=== PATIENT | female | born 1960 | race Caucasian/White ===

== ENCOUNTER 2017-06-18 11:19 | Emergency (ER) | payer OTHER ==
[2017-06-18 11:36] VITALS: BP 128/70
--- NOTE | 2017-06-18 12:27 | UC ---
Respiratory Complaint HPI - HPI Summary HPI Summary: 56 yo female ill x 2 weeks Initially started as URI (nasal congestion/runny nose) now with productive cough and left sided cp x 2 days hurts to lay on left side no sob no n/v/d - History of Current Complaint Chief Complaint: UCRespiratory Stated Complaint: CHEST CONGESTION Time Seen by Provider: 06/18/17 11:54 Hx Obtained From: Patient Onset/Duration: Gradual Onset Timing: Constant Severity Initially: Mild Severity Currently: Moderate Pain Intensity: 4 - worse with cough or deep breath Character: Cough: Productive Aggravating Factors: Deep Breaths Alleviating Factors: Nothing Associated Signs And Symptoms: Positive: Nasal Congestion, Sinus Discomfort - Allergies/Home Medications Allergies/Adverse Reactions: Allergies Allergy/AdvReac Type Severity Reaction Status Date / Time Sulfa Antibiotics Allergy Hives Verified 06/18/17 11:36 Sulfamethoxazole Allergy Hives Verified 06/18/17 11:36 w/Trimethoprim [From Bactrim] Home Medications: Home Medications Cetirizine* [ZyrTEC 10 MG TAB*] 10 mg PO DAILY 06/18/17 [History Confirmed 06/18] PMH/Surg Hx/FS Hx/Imm Hx Previously Healthy: Yes - Surgical History Surgical History: Yes Surgery Procedure, Year, and Place: LEFT Carpal Tunnel Repair, 2010, [facility]. GALLBLADDER, 2005, [facility]. HYSTERECTOMY, AGE 36, [facility]. Left ganglion cyst removal, 10/2013, [facility] - Family History Known Family History: Positive: Cardiac Disease, Hypertension, Diabetes - Social History Alcohol Use: Rare Alcohol Amount: HOLIDAYS Substance Use Type: None Smoking Status (MU): Never Smoked Tobacco - Immunization History Vaccination Up to Date: No Review of Systems Constitutional: Negative Skin: Negative Eyes: Negative ENT: Nasal Discharge, Sinus Congestion Respiratory: Cough Cardiovascular: Chest Pain Gastrointestinal: Negative Genitourinary: Negative Motor: Negative Neurovascular: Negative Musculoskeletal: Negative Neurological: Negative Psychological: Negative Is Patient Immunocompromised?: No All Other Systems Reviewed And Are Negative: Yes Physical Exam Triage Information Reviewed: Yes Appearance: Well-Appearing, No Pain Distress, Well-Nourished Vital Signs: Initial Vital Signs Temp 98.2 F 06/18/17 11:33 Pulse 65 06/18/17 11:33 Resp 18 06/18/17 11:33 BP 128/70 06/18/17 11:33 Pulse Ox 99 06/18/17 11:33 Vital Signs Reviewed: Yes Eyes: Positive: Conjunctiva Clear ENT: Positive: Hearing grossly normal, Nasal congestion, Nasal drainage, Uvula midline. Negative: Trismus, Muffled voice, Hoarse voice Neck: Positive: Supple, Nontender, No Lymphadenopathy Respiratory: Positive: Chest non-tender - see image, Lungs clear, Normal breath sounds, No respiratory distress Cardiovascular: Positive: RRR, No Murmur Abdomen Description: Positive: Nontender Musculoskeletal: Positive: ROM Intact, No Edema Neurological: Positive: Alert Psychological Exam: Normal Skin Exam: Normal UC Diagnostic Evaluation - Laboratory O2 Sat by Pulse Oximetry: 99 - normal/not hypoxic - Radiology Xray Interpretation: No Acute Changes Radiology Interpretation Completed By: Radiologist - EKG Cardiac Rate: NL Cardiac Rhythm: Sinus: Normal Ectopy: None ST Segment: Normal Respiratory Course/Dx - Differential Dx/Diagnosis Provider Diagnoses: acute bronchitis. chest wall pain vs pleuresy Discharge - Discharge Plan Condition: Stable Disposition: HOME Prescriptions: Amoxicillin PO (*) [Amoxicillin 875 MG (*)] 875 mg PO BID #14 tab Prednisone [Deltasone] 40 mg PO DAILY #10 tab Patient Education Materials: Acute Bronchitis (ED), Chest Wall Pain (ED) Forms: *Work Release Referrals: LUIGI Salcedo [Primary Care Provider] - 6 Days (if not better) Additional Instructions: rest heat recheck for worsening symptoms
--- NOTE | 2017-06-18 12:38 | RAD ---
INDICATION: Cough for 2 weeks; now with LEFT side chest pain. COMPARISON: No relevant prior exams available on the [facility] PACS for comparison. TECHNIQUE: Dual energy PA and routine lateral views of the chest were obtained. REPORT: Clear lungs and pleural spaces. Negative for pneumothorax. The heart, pulmonary vasculature, and mediastinal contours are unremarkable. Gallbladder fossa level surgical clips. Unremarkable osseous structures and soft tissue contours. IMPRESSION: No evidence for pneumonia. Negative exam.
== END 2017-06-18 12:56 | disposition home or self-care (01) ==
LOC: UCCORT 11:19
DX: J20.9 Acute bronchitis, unspecified (principal); Z88.2 Allergy status to sulfonamides
CPT/HCPCS: 71020; 93005; 99212; G0463

== ENCOUNTER 2018-05-26 11:37 | Emergency (ER) | payer OTHER ==
[2018-05-26 12:10] VITALS: BP 156/68
--- NOTE | 2018-05-26 12:54 | ED ---
Lower Extremity - HPI Summary HPI Summary: 57 yr old female with the complaint of left ankle and left foot pain. The patient found out last month that her blood work cholesterol was on the "boarder " She started a walking exercise program three weeks ago, and two weeks ago began to have some pain in her left heel, ankle area that has gotten progressively worse with walking. Pain worse last night when sleeping. She feels her foot is a little swollen, but no swelling to the left leg. - History of Current Complaint Chief Complaint: UCLowerExtremity Stated Complaint: LEFT FOOT COMPLAINT Time Seen by Provider: 05/26/18 12:45 Pain Intensity: 9 - Allergies/Home Medications Allergies/Adverse Reactions: Allergies Allergy/AdvReac Type Severity Reaction Status Date / Time Sulfa (Sulfonamide Allergy Hives Verified 05/26/18 12:11 Antibiotics) sulfamethoxazole Allergy Hives Verified 05/26/18 12:11 [From Bactrim] trimethoprim [From Bactrim] Allergy Hives Verified 05/26/18 12:11 Home Medications: Home Medications Fexofenadine (NF) [Char 180 (NF)] 180 mg PO DAILY 05/26/18 [History Confirmed 05/26/18] Over 50 Multivit 1 tab PO DAILY 05/26/18 [History] PMH/Surg Hx/FS Hx/Imm Hx Cardiovascular History: Denies: Other Cardiovascular Problems/Disorders GI History: Denies: Other GI Disorders Musculoskeletal History: Denies: Other Musculoskeletal History Sensory History: Reports: Hx Contacts or Glasses - GLASSES Denies: Hx Hearing Aid Opthamlomology History: Reports: Hx Contacts or Glasses - GLASSES Neurological History: Denies: Other Neuro Impairments/Disorders - Surgical History Surgery Procedure, Year, and Place: LEFT Carpal Tunnel Repair, 2010, [facility]. GALLBLADDER, 2006, [facility]. HYSTERECTOMY, AGE 36, [facility]. Left ganglion cyst removal left hand, 10/2013, [facility] Hx Anesthesia Reactions: No Infectious Disease History: No Infectious Disease History: Denies: Hx Clostridium Difficile, Hx Hepatitis, Hx Human Immunodeficiency Virus (HIV), Hx of Known/Suspected MRSA, Hx Shingles, Hx Tuberculosis, Hx Known/ Suspected VRE, Hx Known/Suspected VRSA, History Other Infectious Disease, Traveled Outside the in Last 30 Days - Family History Known Family History: Positive: Cardiac Disease, Hypertension, Diabetes - Social History Alcohol Use: Rare Alcohol Amount: HOLIDAYS Substance Use Type: Reports: None Smoking Status (MU): Never Smoked Tobacco Review of Systems Negative: Palpitations, Chest Pain Negative: Shortness Of Breath, Cough Positive: Other - left foot ankle pain. All Other Systems Reviewed And Are Negative: Yes Physical Exam Triage Information Reviewed: Yes Vital Signs On Initial Exam: Initial Vitals Temp Pulse Resp BP Pulse Ox 97.6 F 76 18 156/68 98 05/26/18 12:01 05/26/18 12:01 05/26/18 12:01 05/26/18 12:01 05/26/18 12:01 Vital Signs Reviewed: Yes Appearance: Positive: Well-Appearing, No Pain Distress Skin: Positive: Warm, Skin Color Reflects Adequate Perfusion Head/Face: Positive: Normal Head/Face Inspection Eyes: Positive: EOMI ENT: Positive: Normal ENT inspection Neck: Positive: Nontender Respiratory/Lung Sounds: Positive: Clear to Auscultation, Breath Sounds Present Cardiovascular: Positive: RRR. Negative: Murmur Abdomen Description: Positive: Nontender Musculoskeletal: Positive: Strength/ROM Intact, Other - some tenderness over the left medial malleolus, and over the calcaneus. No STS noted. No achilles tendon pain. No pain to the calf or swelling. Good DP and PT pulses present. Neurological: Positive: Sensory/Motor Intact, Alert, Oriented to Person Place, Time, CN Intact II-III Psychiatric: Positive: Normal - Chuck Coma Scale Best Eye Response: 4 - Spontaneous Best Motor Response: 6 - Obeys Commands Best Verbal Response: 5 - Oriented Coma Scale Total: 15 Diagnostics - Vital Signs Vital Signs Temp Pulse Resp BP Pulse Ox 05/26/18 12:01 97.6 F 76 18 156/68 98 - Laboratory Lab Statement: Any lab studies that have been ordered have been reviewed, and results considered in the medical decision making process. - Radiology foot ankle left Radiology Interpretation Completed By: Radiologist - osteoarthritis, talo crual joint Lower Extremity Course/Dx - Course Course Of Treatment: 57 yr old with arthritis in talo crural joint. Plan dc home. FU with Ortho. - Diagnoses Provider Diagnoses: DJD (degenerative joint disease), ankle and foot, Hypertension Discharge - Sign-Out/Discharge Documenting (check all that apply): Patient Departure All imaging exams completed and their final reports reviewed: No Studies - Discharge Plan Condition: Good Disposition: HOME Patient Education Materials: Osteoarthritis (ED) Referrals: No Primary Care Phys,NOPCP [Primary Care Provider] - Nir Lemon MD [Medical Doctor] - 1 Day [facility] PHYSICIAN REFERRAL [Outside] - 1 Day - Billing Disposition and Condition Condition: GOOD Disposition: Home
--- NOTE | 2018-05-26 13:25 | RAD ---
INDICATION: Left ankle pain. TECHNIQUE: 3 views of the left ankle were obtained. FINDINGS: The bones appear osteopenic. There is diffuse soft tissue swelling. No fracture is seen. There is moderate to severe osteoarthritic change in the talocrural joint. IMPRESSION: MODERATE TO SEVERE OSTEOARTHRITIC CHANGE.
--- NOTE | 2018-05-26 13:27 | RAD ---
INDICATION: Left foot pain. TECHNIQUE: 3 views of the left foot were obtained. FINDINGS: The bones are in normal alignment. No fracture is seen. There is moderate to severe osteoarthritic change in the talocrural joint. IMPRESSION: MODERATE TO SEVERE OSTEOARTHRITIC CHANGE IN THE TALOCRURAL JOINT.
--- NOTE | 2018-05-26 13:35 | ED ---
Progress - Progress Note Progress Note: final read reviewed, JADA. Course/Dx - Course Course Of Treatment: 57 yr old with arthritis in talo crural joint. Plan dc home. FU with Ortho. - Diagnoses Provider Diagnoses: DJD (degenerative joint disease), ankle and foot, Hypertension Discharge - Sign-Out/Discharge Documenting (check all that apply): Patient Departure All imaging exams completed and their final reports reviewed: Yes - Discharge Plan Condition: Good Disposition: HOME Patient Education Materials: Osteoarthritis (ED) Referrals: [facility] [Outside] - 1 Day Nir Lemon MD [Medical Doctor] - 1 Day No Primary Care Phys,NOPCP [Primary Care Provider] - - Billing Disposition and Condition Condition: GOOD Disposition: Home
== END 2018-05-26 13:48 | disposition home or self-care (01) ==
LOC: UCCORT 11:37
DX: M19.072 Primary osteoarthritis, left ankle and foot (principal); I10 Essential (primary) hypertension; Z88.1 Allergy status to other antibiotic agents; Z88.2 Allergy status to sulfonamides
CPT/HCPCS: 99211; G0463

== ENCOUNTER → 2018-08-25 05:50 | Day surgery (SDC) | payer BC, OTHER ==
[~2018-08-25 05:50] MED LIST: Acetaminophen IV 1GM/100ML * 1,000 MG/100 ML VIAL IVPB ONE; Acetaminophen IV 1GM/100ML * 100 ML ONE; Buffered Lidocaine 1% SYRIN* 1 ML/SYRINGE INTRADERM ONE; Bupivacaine 0.5%* 50 ML VIAL ONE; Dexamethasone IV* 4 MG/ML 1 ML (4 MG) ONE; Dexmedetomidine* 200 MCG/2 ML 2 ML VIAL ONE; DiMENhydriNATE IV* 50 MG/ML VIAL IV PUSH PRN; DiMENhydriNATE IV* 50 MG/ML VIAL ONE; Famotidine IV* 10 MG/ML 2 ML (20 mg) IV ONE; Famotidine IV* 10 MG/ML 2 ML (20 mg) ONE; Gabapentin CAP(*) 100 MG ONE; Gabapentin CAP(*) 100 MG PO ONE; Gabapentin CAP(*) 300 MG ONE; Gabapentin CAP(*) 300 MG PO ONE; HYDROmorphone INJ1* 1 MG/ML SYRINGE ONE; KETAMINE HCL* 50 MG/ML 10 ML VIAL ONE; Ketorolac INJ* 30 MG/ML 1 ML VIAL ONE; Lactated Ringers 1000 ML Bag* 1,000 ML IV SCH; Lidocaine 2% PF* 10 ML AMP ONE; Midazolam* 1 MG/ML 5 ML VIAL (5 MG) ONE; Naloxone* 0.4 MG/ML 1 ML VIAL IV PRN; Ondansetron INJ* 2 MG/ML VIAL ONE; Propofol* 10 MG/ML 20 ML BTL ONE; ceFAZolin 2 GM PREMIX in ORs 2 GM/50 ML BAG IVPB ONE; fentaNYL* 50 MCG/ML 2 ML VIAL (100 MCG VIAL) ONE; oxyCODONE TAB* 5 MG TAB PO PRN
[2018-08-25] MEDS: HYDROmorphone INJ1* 1 MG/ML SYRINGE IV PRN ×2 (10:52→11:08)
[2018-08-25 13:46] VITALS: BP 114/77
--- NOTE | 2018-08-25 23:32 | OP ---
DATE OF OPERATION: 08/25/18 - [facility] DATE OF : 56 SURGEON: Jerzy Falk MD PRIME MINISTER: ISABEL Deal PRE-OP DIAGNOSIS: Left ankle arthritis with Achilles contracture. POST-OP DIAGNOSIS: Left ankle arthritis with Achilles contracture. OPERATIVE PROCEDURE: Left Infinity total ankle with Lona release. DESCRIPTION OF PROCEDURE: The patient was taken to the operating room where a 3 cm longitudinal incision was made medial to the mid portion of the calf through the soft tissue. I exposed the tendon of the Achilles overlying the soleus. This was transected medial to lateral, taking care to protect the deep soft tissues. I irrigated the subcu tissue closing with 2-0 Vicryl and obie for the skin. We then made a longitudinal incision over the anterior ankle with the retinaculum size just lateral to the anterior tibial. The distal tibial sizing jig was placed over the anterior aspect of the distal tibia and using the C-arm we sized this to approximately 3 size tibia. I also checked the intramedullary alignment. With some guide pins in the size 3 distal tibia sizing block, we were able to also check the flexion and extension position on the lateral view. We then fixed the distal tibial cutting jig and also fixed the talus to this jig with their neck pins. We then cut the distal tibia as well as the talar dome with the reciprocating saw. We then finished the cuts with a small osteotome. We sized the talus for #3 also. The talar cutting jig was then fixed to the talus using guide pins. We cut the posterior chamfer as well as reaming out the anterior portion of the neck with the appropriate jigs. We were then able to do a trial reduction with a #3 tibia, #3 talus and a 6 and then 8 mm poly. Good fixation appeared to be possible judging on AP and lateral C-arm views as well as sizing. We then used the peg hole for the tibial component and also the anterior peg hole drill bit for the talar component. We then selected a #3 tibial component, #3 talar component, both of these driven in with appropriate jigs and then an 8 mm poly. Trial reduction was performed, felt to be excellent, so the permanent poly was placed. We irrigated thoroughly closing the retinaculum with interrupted 0 Vicryl, subcu with 2-0 Vicryl and obie for the skin. A compression dressing plaster splint was applied. [id number]/[facility] #: [id number] [facility] CENTERNaresh
== END | disposition home or self-care (01) ==
LOC: OR 05:50
PROVIDERS: ATTEND Orthopaedic Surgery
DX: M19.172 Post-traumatic osteoarthritis, left ankle and foot (principal); K21.9 Gastro-esophageal reflux disease without esophagitis; J30.89 Other allergic rhinitis
CPT/HCPCS: 76000; A9270-GY; C1776; J0690; J1100; J1170; J1240; J1885; J2001; J2250; J2405; J2704; J3010

== ENCOUNTER 2019-07-02 10:13 | Emergency (ER) | payer BC ==
--- OUTSIDE RECORDS SUMMARY | 2019-07-02 10:41 | XMS REPORT | Continuity of Care Document ---
:1960 External Reference #:[id number] Author Name Jerzy Falk M.D. 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 [phone] Nurse Problems Description No Information Available Social History Type Date Description Comments Sex Unknown ETOH Use Rarely consumes alcohol Tobacco Use Start: Unknown Patient has never smoked Recreational Drug Use Denies Drug Use Smoking Status Reviewed: 05/13/19 Patient has never smoked Exercise Type/Frequency Exercises regularly walking Allergies, Adverse Reactions, Alerts Active Allergies Reaction Severity Comments Date Sulfa Antibiotics 07/25/2015 Bactrim 07/25/2015 Medications Active Medications SIG Qnty Indications Ordering Provider Date Vitamin D High Potency 2 by mouth every Unknown day 1000Unit Capsules Char Allergy 1 by mouth every Unknown 60mg day Tablets Centrum Silver 1 by mouth every Unknown Tablets day Magnesium 1 by mouth every Unknown 200mg Tablets day Potassium 1 by mouth daily Unknown Tablets Acetaminophen Extra 2 tabs by mouth Unknown Strength every 8 hours as 500mg Tablets needed for pain or fever Advil 2 tabs by mouth Unknown 200mg Tablets as needed Medications Administered in Office Medication SIG Qnty Indications Ordering Provider Date Celestone 3 mg and 3mg Nir Lemon MD 05/27/2018 Injection Immunizations Description No Information Available Vital Signs Date Vital Result Comment 05/13/2019 11:02am Height 62 inches 5'2" Weight 200.00 lb Heart Rate 78 /min BP Systolic Sitting 121 mmHg BP Diastolic Sitting 67 mmHg Respiratory Rate 16 /min Pain Level 5 O2 % BldC Oximetry 98 % BMI (Body Mass Index) 36.6 kg/m2 02/04/2019 11:56am Height 62 inches 5'2" Weight 201.00 lb BP Systolic Sitting 120 mmHg BP Diastolic Sitting 72 mmHg Respiratory Rate 12 /min Pain Level 3 BMI (Body Mass Index) 36.8 kg/m2 Results Description No Information Available Procedures Description No Information Available Medical Devices Description No Information Available Encounters Type Date Location Provider Dx Diagnosis Office Visit 05/13/2019 [facility] Jerzy Falk Z96.662 Presence of left 11:00a at [facility] artificial ankle joint Z47.1 Aftercare following joint replacement surgery G57.92 Unspecified mononeuropathy of left lower limb Office Visit 02/04/2019 [facility] Jerzy M19.172 Post-traumatic 11:45a [facility]oped[facility] nazario Falk M.D. osteoarthritis, left [place] ankle and foot Z96.662 Presence of left artificial ankle joint Z47.1 Aftercare following joint replacement surgery Assessments Date Code Description Provider 05/13/2019 Z96.662 Presence of left artificial ankle joint Jerzy Falk M.D. 05/13/2019 Z47.1 Aftercare following joint replacement surgery Jerzy Falk M.D. 05/13/2019 G57.92 Unspecified mononeuropathy of left lower limb Jerzy Falk M.D. 02/04/2019 M19.172 Post-traumatic osteoarthritis, left ankle and Jerzy Falk M.D. foot 02/04/2019 Z96.662 Presence of left artificial ankle joint Jerzy Falk M.D. 02/04/2019 Z47.1 Aftercare following joint replacement surgery Jerzy Falk M.D. 11/19/2018 M19.172 Post-traumatic osteoarthritis, left ankle and Jerzy Falk M.D. foot Plan of Treatment Future Appointment(s):06/17/2019 11:00 am [facility] Jerzy Falk M.D.Z96.662 Presence of left artificial ankle jointNew Therapy:Physical TherapyRehab ReferralFollow up: Follow up: 4 [id number] Aftercare following joint replacement [id number] Unspecified mononeuropathy of left lower limbFollow up:As needed Functional Status Description No Information Available Mental Status Description No Information Available Referrals Description No Information Available
--- OUTSIDE RECORDS SUMMARY | 2019-07-02 10:41 | XMS REPORT | Continuity of Care Document ---
:1960 External Reference #:[id number] Author Name Jerzy Falk M.D. 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 [phone] Problems Description No Information Available Social History Type Date Description Comments Sex Unknown ETOH Use Rarely consumes alcohol Tobacco Use Start: Unknown Patient has never smoked Recreational Drug Use Denies Drug Use Smoking Status Reviewed: 06/17/19 Patient has never smoked Exercise Type/Frequency Exercises [...] by mouth Unknown 200mg Tablets as needed History Medications Gabapentin 1 tab by mouth 60caps Momo Knight MD 05/13/2019 - 100mg every 12 hours 06/16/2019 Capsules Medications Administered in Office Medication SIG Qnty Indications Ordering Provider Date Celestone 3 mg and 3mg Nir Lemon MD 05/27/2018 Injection Immunizations Description No Information Available Vital Signs Date Vital Result Comment 06/17/2019 10:42am Height 62 inches 5'2" Weight 196.00 lb Heart Rate 87 /min BP Systolic Sitting 126 mmHg BP Diastolic Sitting 80 mmHg Respiratory Rate 18 /min Pain Level 2 O2 % BldC Oximetry 98 % BMI (Body Mass Index) 35.8 kg/m2 05/13/2019 11:02am Height 62 inches 5'2" Weight 200.00 lb Heart Rate 78 /min BP Systolic Sitting 121 mmHg BP Diastolic Sitting 67 mmHg Respiratory Rate 16 /min Pain Level 5 O2 % BldC Oximetry 98 % BMI (Body Mass Index) 36.6 kg/m2 Results Description No Information Available Procedures Date Code Description Status 05/13/2019 07943 Rad Exam; Ankle Comp Completed Medical Devices Description No Information Available Encounters Type Date Location Provider Dx Diagnosis Office Visit 05/13/2019 [facility] Jerzy Falk Z96.662 Presence of left 11:00a at [facility] artificial ankle joint Z47.1 Aftercare following joint replacement surgery G57.92 Unspecified mononeuropathy of left lower limb M19.172 Post-traumatic osteoarthritis, left ankle and foot Office Visit 02/04/2019 [facility] M19.172 Post-traumatic 11:45a Orthopedics nazario Falk M.D. osteoarthritis, left [place] ankle and foot Z96.662 Presence of left artificial ankle joint Z47.1 Aftercare following joint replacement surgery Assessments Date Code Description Provider 06/17/2019 Z96.662 Presence of left artificial ankle joint Jerzy Falk M.D. 06/17/2019 Z47.1 Aftercare following joint replacement surgery Jerzy Falk M.D. 05/13/2019 Z96.662 Presence of left artificial ankle joint Jerzy Falk M.D. 05/13/2019 Z47.1 Aftercare following joint replacement surgery Jerzy Falk M.D. 05/13/2019 G57.92 Unspecified mononeuropathy of left lower limb Jerzy Falk M.D. 05/13/2019 M19.172 Post-traumatic osteoarthritis, left ankle and Jerzy Falk M.D. foot 02/04/2019 M19.172 Post-traumatic osteoarthritis, left ankle and Jerzy Falk M.D. foot 02/04/2019 Z96.662 Presence of left artificial ankle joint Jerzy Falk M.D. 02/04/2019 Z47.1 Aftercare following joint replacement surgery Jerzy Falk M.D. Plan of Treatment Future Appointment(s):12/16/2019 10:45 am - Jerzy Falk M.D. at [facility] at [facility]17/20/2019 - Jerzy Falk M.D.Z96.662 Presence of left artificial ankle jointFollow up:Follow up: 6 [id number] Aftercare following joint replacement surgery Functional Status Description No Information Available Mental Status Description No Information Available Referrals Description No Information Available
[2019-07-02 11:13] VITALS: BP 142/89
--- NOTE | 2019-07-02 11:42 | UC ---
Back Pain HPI - HPI Summary HPI Summary: Patient is a 58yo female presenting with lower back pain x3 days after she states she felt "a crunch in her groin area while shoveling snow" and has had lower back pain ever since. States she was recently diagnosed with sciatica but that this pain is different. Notes constant sharp pain without relieving factors. Denies numbness and tingling. Denies radiating pain. Denies difficulty ambulating but states she "cannot bend over at all." Denies incontinence. Patient notes h/o spinal stenosis as well. States she has taken advil and heated without relief. - History of Current Complaint Chief Complaint: UCBackPain Stated Complaint: BACK PAIN Hx Obtained From: Patient Onset/Duration: Sudden Onset, Lasting Days Timing: Constant Severity Currently: Severe Pain Intensity: 8 Pain Scale Used: 0-10 Numeric - Allergies/Home Medications Allergies/Adverse Reactions: Allergies Allergy/AdvReac Type Severity Reaction Status Date / Time Sulfa (Sulfonamide Allergy Severe Hives Verified 07/02/19 14:37 Antibiotics) sulfamethoxazole Allergy Severe Hives Verified 07/02/19 14:37 [From Bactrim] trimethoprim [From Bactrim] Allergy Severe Hives Verified 07/02/19 14:37 Home Medications: Home Medications Antibiotic For Uti 1 tab PO BID 07/02/19 [History Confirmed 07/02/19] PMH/Surg Hx/FS Hx/Imm Hx - Surgical History Surgical History: Yes Surgery Procedure, Year, and Place: LEFT Carpal Tunnel Repair, 2010, [facility]. GALLBLADDER, 2005, [facility]. HYSTERECTOMY, AGE 36, [facility]. LEFT ganglion cyst removal left hand, 10/2013, [facility]; left ankle replacement 08/25/17 [facility] - Family History Known Family History: Positive: Cardiac Disease, Hypertension, Diabetes, Non- Contributory - Social History Alcohol Use: Rare Alcohol Amount: HOLIDAYS-here and there Substance Use Type: None Smoking Status (MU): Never Smoked Tobacco - Immunization History Vaccination Up to Date: No Review of Systems All Other Systems Reviewed And Are Negative: Yes Constitutional: Positive: Negative Skin: Positive: Negative. Negative: Bruising Respiratory: Positive: Negative Cardiovascular: Positive: Negative Motor: Positive: Negative Neurovascular: Positive: Negative Musculoskeletal: Positive: Arthralgia - lower back, Decreased ROM - bending over d/t pain. Negative: Edema Neurological: Negative: Paresthesia, Numbness Physical Exam Triage Information Reviewed: Yes Appearance: Well-Appearing, No Pain Distress, Well-Nourished Vital Signs: Initial Vital Signs Temp 99.2 F 07/02/19 10:57 Pulse 100 07/02/19 10:57 Resp 20 07/02/19 10:57 BP 142/89 07/02/19 10:57 Pulse Ox 99 07/02/19 10:57 Vital Signs Reviewed: Yes Eyes: Positive: Conjunctiva Clear ENT: Positive: Hearing grossly normal Neck: Positive: Supple Respiratory Exam: Normal Respiratory: Positive: Lungs clear, Normal breath sounds, No respiratory distress Cardiovascular Exam: Normal Cardiovascular: Positive: RRR, Pulses Normal Abdomen Description: Negative: CVA Tenderness (R), CVA Tenderness (L) Musculoskeletal: Positive: No Edema, ROM Limited @ - hip flexion d/t pain, Other : - tenderness to palpation of lumbarsacral spine and paraspinous muscles. Neurological Exam: Other - sensation grossly intact Neurological: Positive: Alert Psychological: Positive: Age Appropriate Behavior Skin Exam: Normal - no erythema or ecchymosis Diagnostics - Radiology lumbarsacral Radiology Interpretation Completed By: Radiologist Summary of Radiographic Findings: IMPRESSION: 1. NEW [id number] LIKELY ACUTE COMPRESSION FRACTURE INVOLVING THE INFERIOR ENDPLATE OF THE L4 VERTEBRAL BODY. 2. GRADE II ANTERIOR SPONDYLOLISTHESIS AT THE L5-S1 LEVEL DEMONSTRATING SLIGHT PROGRESSION. Back Pain Course/Dx - Course Course Of Treatment: Discussed L4 compression fracture with patient. Discussed patient with Dr. Iyer who agreed that patient should go to ED for possible further imaging and lab work. Discussed this with patient. Advised her that transfer via ambulance was recommended, as she came alone. Patient declined, stating she would drive herself to [place] ED. Patient signed AMA and stable upon departure. - Differential Dx/Diagnosis Provider Diagnosis: Compression fracture of L4 vertebra Discharge ED - Sign-Out/Discharge Documenting (check all that apply): Patient Departure All imaging exams completed and their final reports reviewed: Yes - Discharge Plan Condition: Stable Disposition: AGAINST MEDICAL ADVICE Referrals: Marla Mascorro NP [Primary Care Provider] - Additional Instructions: The provider that evaluated you today thinks that you need additional testing that can be completed the emergency department. It is recommended that you go directly to emergency department for further evaluation. This evaluation included blood work or imaging. This testing will be directed and decided by the provider that evaluates you at the emergency department. If pain becomes worse, you feel lightheaded, you have uncontrolled vomiting, or you have any other concerns while you are being driven to emergency department as recommended to pullover and contact 911. - Billing Disposition and Condition Condition: STABLE Disposition: Against Medical Advice
== END 2019-07-02 12:47 | disposition left against medical advice (07) ==
LOC: UCCORT 10:13
DX: S32.049A Unspecified fracture of fourth lumbar vertebra, initial encounter for closed fracture (principal); M54.30 Sciatica, unspecified side; Z88.2 Allergy status to sulfonamides; X58.XXXA Exposure to other specified factors, initial encounter; Y93.H1 Activity, digging, shoveling and raking; Y92.9 Unspecified place or not applicable
CPT/HCPCS: 72110; 99212; G0463

== ENCOUNTER 2019-07-02 14:30 | Emergency (ER) | payer BC ==
[2019-07-02] MEDS ORDERED: HYDROcodone/ACETAMIN 5-325 MG* 1 TAB PO ONE (15:44)
[2019-07-02 16:36] VITALS: BP 153/94
--- NOTE | 2019-07-02 16:50 | ED ---
Back Pain - HPI Summary HPI Summary: Patient is a 58-year-old female who presents emergency department for reevaluation compression fracture. Patient states a few days ago she was shoveling snow and when she stood up from a bending position she felt a "crunch " in her low back. Pain persisted patient went to [facility] for evaluation. She had a lumbar x-ray performed which showed a compression fracture of L4. Patient states she was referred to the ER for further evaluation. Patient denies numbness, tingling or weakness in legs. Denies bowel or bladder incontinence or retention. Denies saddle paresthesias. No significant past medical history. Movement makes symptoms worse. Nothing makes symptoms better. - History of Current Complaint Chief Complaint: EDBackInjuryPain Stated Complaint: BACK PAIN PER PT Time Seen by Provider: 07/02/19 15:22 Hx Obtained From: Patient Pain Intensity: 8 Pain Scale Used: 0-10 Numeric - Allergies/Home Medications Allergies/Adverse Reactions: Allergies Allergy/AdvReac Type Severity Reaction Status Date / Time Sulfa (Sulfonamide Allergy Severe Hives Verified 07/02/19 14:37 Antibiotics) sulfamethoxazole Allergy Severe Hives Verified 07/02/19 14:37 [From Bactrim] trimethoprim [From Bactrim] Allergy Severe Hives Verified 07/02/19 14:37 PMH/Surg Hx/FS Hx/Imm Hx Previously Healthy: Yes Endocrine/Hematology History: Reports: Hx Diabetes - Borderline Denies: Hx Thyroid Disease Cardiovascular History: Reports: Other Cardiovascular Problems/Disorders - Elevated cholesterol, no meds-diet and exercise Respiratory History: Denies: Hx Sleep Apnea, Other Respiratory Problems/Disorders GI History: Denies: Other GI Disorders History: Reports: Other Problems/Disorders - UTI, treated and resolved approx 2 weeks ago Musculoskeletal History: Reports: Hx Arthritis - Osteoarthritis left ankle Denies: Other Musculoskeletal History Sensory History: Reports: Hx Contacts or Glasses - GLASSES Denies: Hx Hearing Aid Opthamlomology History: Reports: Hx Contacts or Glasses - GLASSES Neurological History: Denies: Other Neuro Impairments/Disorders - Surgical History Surgery Procedure, Year, and Place: LEFT Carpal Tunnel Repair, 2010, [facility]. GALLBLADDER, 2005, [facility]. HYSTERECTOMY, AGE 36, [facility]. LEFT ganglion cyst removal left hand, 10/2013, [facility]; left ankle replacement 08/25/17 [facility] Hx Anesthesia Reactions: No Infectious Disease History: No Infectious Disease History: Denies: Hx Clostridium Difficile, Hx Hepatitis, Hx Human Immunodeficiency Virus (HIV), Hx of Known/Suspected MRSA, Hx Shingles, Hx Tuberculosis, Hx Known/ Suspected VRE, Hx Known/Suspected VRSA, History Other Infectious Disease, Traveled Outside the [place] in Last 30 Days - Family History Known Family History: Positive: Cardiac Disease, Hypertension, Diabetes, Non- Contributory - Social History Occupation: Employed Full-time Lives: With Family Alcohol Use: Rare Alcohol Amount: HOLIDAYS-here and there Substance Use Type: Reports: None Smoking Status (MU): Never Smoked Tobacco Review of Systems Constitutional: Negative Negative: Fever Cardiovascular: Negative Respiratory: Negative Gastrointestinal: Negative Positive: Other - low back pain Skin: Negative Neurological: Negative Negative: Headache, Weakness, Paresthesia, Numbness, Syncope All Other Systems Reviewed And Are Negative: Yes Physical Exam Triage Information Reviewed: Yes Vital Signs On Initial Exam: Initial Vitals Temp Pulse Resp BP Pulse Ox 97.4 F 107 16 180/134 99 07/02/19 14:32 07/02/19 14:32 07/02/19 14:32 07/02/19 14:32 07/02/19 14:32 Vital Signs Reviewed: Yes Appearance: Positive: Well-Appearing - Patient sitting in chair in no acute distress. present. Skin: Positive: Warm, Dry Head/Face: Positive: Normal Head/Face Inspection Eyes: Positive: Normal, EOMI, SHANA Neck: Positive: Supple Musculoskeletal: Positive: Normal, Strength/ROM Intact, Other - Midline tenderness and it to low lumbar spine. 5 out of 5 strength in bilateral lower extremities. Ambulatory without difficulty. Neurological: Positive: Normal, CN Intact II-III, Normal Gait Procedures - Sedation Patient Received Moderate/Deep Sedation with Procedure: No Diagnostics - Vital Signs Vital Signs Temp Pulse Resp BP Pulse Ox 07/02/19 16:35 97.9 F 90 18 153/94 97 07/02/19 14:32 97.4 F 107 16 180/134 99 - Laboratory Lab Statement: Any lab studies that have been ordered have been reviewed, and results considered in the medical decision making process. Back Pain Course/Dx - Course Course Of Treatment: Patient presenting to ER for evaluation of compression fracture she sustained a few days ago shoveling snow. Patient has no neurological deficits. Case discussed with Dr. Miller who agrees no further workup was seen in the ED. We'll refer patient to neurosurgery for follow-up. ASSIGNMENT CLERK reviewed and no red flags noted. Small prescription for pain medication provided. Patient given return precautions. Patient understands and agrees with plan. Discharged home with . Xray per radiology: IMPRESSION: 1. NEW [id number] LIKELY ACUTE COMPRESSION FRACTURE INVOLVING THE INFERIOR ENDPLATE. OF THE L4 VERTEBRAL BODY. 2. GRADE II ANTERIOR SPONDYLOLISTHESIS AT THE L5-S1 LEVEL DEMONSTRATING SLIGHT. PROGRESSION. - Diagnoses Differential Diagnosis/HQI/PQRI: Positive: Fracture, Herniated Disc, Strain, Sprain Provider Diagnoses: Compression fracture Discharge ED - Sign-Out/Discharge Documenting (check all that apply): Patient Departure - Discharge Plan Condition: Good Disposition: HOME Prescriptions: Hydrocodone/Acetaminophen [Hydrocodone-Acetamin 5-325 mg] 1 each PO Q6H #20 tablet MDD 4 Patient Education Materials: Vertebral Compression Fracture (ED) Referrals: Marla Mascorro NP [Primary Care Provider] - Alanna Powers MD [Medical Doctor] - Additional Instructions: Call Dr. Powers' office tomorrow for a close follow up appointment Ice intermittently Pain medication as directed Return to ER for loss of bowel or bladder control, leg numbness, increased pain , or if concerned - Billing Disposition and Condition Condition: GOOD Disposition: Home
--- NOTE | 2019-07-06 09:16 | ED ---
Imaging and Labs Follow Up Follow Up Type: Labs/Cultures Labs/Culture Result: pts called and stated they were unable to machine operator picker medication They are requesting the medication to be resent to other pharmacy ISTOP patient which revealed no recent controlled substances picked up by patient Patient Communication/Plan: Pt was told another script would be sent to other pharmacy Provider Diagnoses: Compression fracture
== END 2019-07-02 16:32 | disposition home or self-care (01) ==
LOC: ED 14:30
DX: S32.040A Wedge compression fracture of fourth lumbar vertebra, initial encounter for closed fracture (principal); X50.9XXA Other and unspecified overexertion or strenuous movements or postures, initial encounter; Y93.H1 Activity, digging, shoveling and raking; Y92.9 Unspecified place or not applicable; Z88.1 Allergy status to other antibiotic agents; Z88.2 Allergy status to sulfonamides
CPT/HCPCS: 99282